=== PATIENT | male | born 2000 | race Caucasian/White ===

== ENCOUNTER 2021-05-11 19:01 | Emergency (ER) | payer OTHER ==
[~2021-05-11] VITALS: Ht 170.2 cm; Wt 66.7 kg
[2021-05-11] MEDS ORDERED: PREDNISONE20 MG PO (19:43)
[2021-05-11] MEDS ORDERED: VALTREX1000 MG PO (19:44)
[2021-05-11 19:46] VITALS: BP 142/75
[2021-05-11] MEDS ORDERED: LUBRICANT EYE3.5 G1 OD (19:48)
[2021-05-11] MEDS ORDERED: PREDNISONE 20 MG TAB PO ONE (20:00)
[2021-05-11] MEDS ORDERED: PREDNISONE 20 MG TAB ONE (20:01)
== END 2021-05-11 20:00 | disposition home or self-care (01) ==
LOC: FSED 19:25
DX: G51.0 Bell's palsy (principal); F17.210 Nicotine dependence, cigarettes, uncomplicated
CPT/HCPCS: 99282; J7512